=== PATIENT | female | born 1950 | race American Indian/Alaskan Native ===

== ENCOUNTER 2020-08-06 12:25 | Inpatient (IN) | payer MEDICARE ==
--- NOTE | 2020-08-06 13:22 | Emergency Department Report ---
ED Shortness of Breath HPI - General Chief Complaint: Dyspnea/Respdistress Stated Complaint: AMADA Time Seen by Provider: 08/06/20 12:59 Source: EMS Mode of arrival: Stretcher Limitations: Other - History of Present Illness Initial Comments: 70-year-old female, history of respiratory failure with tracheostomy tube, HIV, diabetes, CHF with defibrillator, anoxic brain injury, COPD, sent to ED from [facility] for labored breathing. Patient does not appear to be in any respiratory distress. Patient shakes her head yes or no to questioning. She denies any difficulty breathing, cough, chest pain. I spoke with patient's nurse at [facility], [place]. She reports that around 11 AM they noticed that patient had some labored breathing. Patient is normally on 10 L O2. With this, she states patient had O2 sats of 95%, however she was still tachypneic, breathing 25 breaths/min, so patient was placed on nonrebreather and EMS was called. She reports patient has not had a fever. Patient has not received a COVID-19 vaccine. States her rapid COVID test at the detention this morning was negative. Nurse also reports yesterday, systolic BP was in the 130s. MD Complaint: shortness of breath -: This morning Severity: Unable to Determine Consistency: constant Improves With: nothing Worsens With: nothing Known History Of: COPD, congestive heart failure, HIV Associated Symptoms: denies other symptoms Treatments Prior to Arrival: oxygen - Related Data Home Oxygen Therapy: Yes Home Oxygen Amount: other (10 L) Home Medications Medication Instructions Recorded Confirmed Last Taken Acetaminophen [Tylenol] 650 mg FEEDTUBE Q6H PRN 08/06/20 08/06/20 Unknown Albuterol Sulfate 2.5 mg IH QID 08/06/20 08/06/20 Unknown Amlodipine Besylate [Norvasc] 5 mg FEEDTUBE DAILY 08/06/20 08/06/20 Unknown Apixaban [Eliquis] 5 mg FEEDTUBE BID 08/06/20 08/06/20 Unknown Aspirin EC [Halfprin EC] 81 mg FEEDTUBE QDAY 08/06/20 08/06/20 Unknown Atovaquone [Mepron] 10 ml FEEDTUBE DAILY 08/06/20 08/06/20 Unknown Colesevelam [Welchol] 3 tab FEEDTUBE BID 08/06/20 08/06/20 Unknown Dolutegravir Sodium [Tivicay] 50 mg FEEDTUBE DAILY 08/06/20 08/06/20 Unknown Donepezil HCl [Donepezil HCl Odt] 5 mg FEEDTUBE QHS 08/06/20 08/06/20 Unknown Emtricitabine [Emtriva] 200 mg FEEDTUBE QDAY 08/06/20 08/06/20 Unknown Famotidine [Pepcid] 20 mg FEEDTUBE DAILY 08/06/20 08/06/20 Unknown Insulin Glargine,Hum.rec.anlog 10 unit SUB-Q DAILY 08/06/20 08/06/20 Unknown [Basaglar Kwikpen U-100] Lipase/Protease/Amylase [Creon Dr 1 each FEEDTUBE TID 08/06/20 08/06/20 Unknown 12,000 Units Capsule] Lispro Insulin [HumaLOG] 0.1 ml SQ DAILY 08/06/20 08/06/20 Unknown Memantine 5 mg FEEDTUBE BID 08/06/20 08/06/20 Unknown Sacubitril/Valsartan [Entresto 24 1 each FEEDTUBE BID 08/06/20 08/06/20 Unknown - 26 mg] Scopolamine [Transderm-Scop] 1.5 mg TRANSDERMA Q3D 08/06/20 08/06/20 Unknown Tuberculin Ppd [Aplisol] 0.1 ml IM DAILY 08/06/20 08/06/20 Unknown carvediloL [Coreg] 12.5 mg FEEDTUBE BID 08/06/20 08/06/20 Unknown hydrALAZINE [Apresoline TAB] 100 mg FEEDTUBE DAILY 08/06/20 08/06/20 Unknown levETIRAcetam [Spritam] 7.5 ml FEEDTUBE BID 08/06/20 08/06/20 Unknown Allergies Allergy/AdvReac Type Severity Reaction Status Date / Time No Known Allergies Allergy Unverified 08/06/20 12:41 ED Review of Systems ROS: Stated complaint: AMADA Other details as noted in HPI Comment: All other systems reviewed and negative Respiratory: denies: cough, shortness of breath Cardiovascular: denies: chest pain ED Past Medical Hx - Past Medical History Additional medical history: RESP FAILURE WITH HYPOXIA. HIV. MUSCLE WEAKNESS CHF DIABETES DYSPHAGIA CARDIOMYPATHY ANOXIC BRAIN INJURY. COPD DEFIB - Medications Home Medications: Home Medications Medication Instructions Recorded Confirmed Last Taken Type Acetaminophen [Tylenol] 650 mg FEEDTUBE Q6H PRN 08/06/20 08/06/20 Unknown History Albuterol Sulfate 2.5 mg IH QID 08/06/20 08/06/20 Unknown History Amlodipine Besylate [Norvasc] 5 mg FEEDTUBE DAILY 08/06/20 08/06/20 Unknown History Apixaban [Eliquis] 5 mg FEEDTUBE BID 08/06/20 08/06/20 Unknown History Aspirin EC [Halfprin EC] 81 mg FEEDTUBE QDAY 08/06/20 08/06/20 Unknown History Atovaquone [Mepron] 10 ml FEEDTUBE DAILY 08/06/20 08/06/20 Unknown History Colesevelam [Welchol] 3 tab FEEDTUBE BID 08/06/20 08/06/20 Unknown History Dolutegravir Sodium [Tivicay] 50 mg FEEDTUBE DAILY 08/06/20 08/06/20 Unknown History Donepezil HCl [Donepezil HCl Odt] 5 mg FEEDTUBE QHS 08/06/20 08/06/20 Unknown History Emtricitabine [Emtriva] 200 mg FEEDTUBE QDAY 08/06/20 08/06/20 Unknown History Famotidine [Pepcid] 20 mg FEEDTUBE DAILY 08/06/20 08/06/20 Unknown History Insulin Glargine,Hum.rec.anlog 10 unit SUB-Q DAILY 08/06/20 08/06/20 Unknown H istory [Basaglar Kwikpen U-100] Lipase/Protease/Amylase [Creon Dr 1 each FEEDTUBE TID 08/06/20 08/06/20 Unknown History 12,000 Units Capsule] Lispro Insulin [HumaLOG] 0.1 ml SQ DAILY 08/06/20 08/06/20 Unknown History Memantine 5 mg FEEDTUBE BID 08/06/20 08/06/20 Unknown History Sacubitril/Valsartan [Entresto 24 1 each FEEDTUBE BID 08/06/20 08/06/20 Unknown History - 26 mg] Scopolamine [Transderm-Scop] 1.5 mg TRANSDERMA Q3D 08/06/20 08/06/20 Unknown History Tuberculin Ppd [Aplisol] 0.1 ml IM DAILY 08/06/20 08/06/20 Unknown History carvediloL [Coreg] 12.5 mg FEEDTUBE BID 08/06/20 08/06/20 Unknown History hydrALAZINE [Apresoline TAB] 100 mg FEEDTUBE DAILY 08/06/20 08/06/20 Unknown History levETIRAcetam [Spritam] 7.5 ml FEEDTUBE BID 08/06/20 08/06/20 Unknown History ED Physical Exam - General Limitations: Other General appearance: alert, in no apparent distress - Head Head exam: Present: atraumatic, normocephalic - Eye Eye exam: Present: normal appearance, EOMI - ENT ENT exam: Present: mucous membranes moist - Neck Neck exam: Present: other (Tracheostomy in place) - Respiratory Respiratory exam: Present: normal lung sounds bilaterally. Absent: respiratory distress - Cardiovascular Cardiovascular Exam: Present: regular rate, normal rhythm - GI/Abdominal GI/Abdominal exam: Present: soft, other (PEG tube in place). Absent: distended, tenderness - Extremities Exam Extremities exam: Present: normal inspection - Neurological Exam Neurological exam: Present: alert, other (Follows commands, shakes head yes and no to answer questions) - Psychiatric Psychiatric exam: Present: normal affect, normal mood - Skin Skin exam: Present: warm, dry, intact, normal color ED Course Vital Signs 08/06/20 08/06/20 08/06/20 12:45 12:47 13:30 Temperature 97.8 F Pulse Rate 100 H 97 H 99 H Respiratory 21 20 17 Rate Blood Pressure 85/50 86/52 Blood Pressure 85/50 [Right] O2 Sat by Pulse 93 95 94 Oximetry 08/06/20 08/06/20 08/06/20 14:00 14:15 14:30 Temperature Pulse Rate 94 H 93 H 92 H Respiratory 19 16 17 Rate Blood Pressure 88/51 87/50 87/50 Blood Pressure [Right] O2 Sat by Pulse 99 100 100 Oximetry 08/06/20 08/06/20 08/06/20 14:45 14:47 15:16 Temperature Pulse Rate 91 H 89 90 Respiratory 15 14 16 Rate Blood Pressure 101/54 98/54 Blood Pressure 101/54 [Right] O2 Sat by Pulse 100 100 100 Oximetry 08/06/20 08/06/20 08/06/20 15:19 16:00 16:16 Temperature Pulse Rate 94 H 93 H 91 H Respiratory 14 30 H 14 Rate Blood Pressure 98/53 98/53 Blood Pressure 98/54 [Right] O2 Sat by Pulse 99 100 100 Oximetry 08/06/20 08/06/20 08/06/20 17:00 17:16 18:46 Temperature Pulse Rate 86 85 78 Respiratory 18 12 16 Rate Blood Pressure 96/54 96/54 104/56 Blood Pressure [Right] O2 Sat by Pulse 100 100 99 Oximetry ED Medical Decision Making - Lab Data Result diagrams: 08/06/20 13:33 08/06/20 16:04 - EKG Data -: EKG Interpreted by Me EKG shows normal: sinus rhythm, intervals, QRS complexes, ST-T waves Rate: normal - EKG Data When compared to previous EKG there are: no significant change - Radiology Data Radiology results: report reviewed, image reviewed - Medical Decision Making 70-year-old female presents to ED from detention for respiratory distress. Patient does not appear to be in any respiratory distress here in the ED. Trach care performed by respiratory therapist. O2 sats are normal. However, chest x- ray shows pneumonia versus pneumonitis. Levaquin given for possible pneumonia. Blood cultures drawn. Lactic acid is normal, WBCs are normal. Patient is, however, hypotensive. Patient given 1 L bolus of fluids with improvement of her blood pressure. Patient will be admitted to hospitalist, Dr. Khoury, for further management. - Differential Diagnosis Pneumonia, COPD exacerbation, CHF exacerbation Critical care attestation.: If time is entered above; I have spent that time in minutes in the direct care of this critically ill patient, excluding procedure time. ED Disposition Clinical Impression: Hypotension, Pneumonia Disposition: [id number] OP ADMIT IP TO THIS HOSP Is pt being admited?: Yes Condition: Stable Time of Disposition: 17:33
--- NOTE | 2020-08-06 13:50 | XRay Report ---
CHEST 1 VIEW 08/06/2020 1:09 PM INDICATION / CLINICAL INFORMATION: sob. COMPARISON: None available. FINDINGS: SUPPORT DEVICES: Tracheostomy tube appears in satisfactory position radiographically. Automated defib rillator device is noted. HEART / MEDIASTINUM: Atherosclerotic calcifications are noted in the aortic arch. LUNGS / PLEURA: There are patchy parenchymal opacities in the lung bases and in the midlung zones. No pneumothorax. There is a somewhat nodular density in the right midlung zone which measures approxima tely 12 mm. This is partially obscured by a wire. ADDITIONAL FINDINGS: No significant additional findings. IMPRESSION: 1. There are parenchymal opacities in the lung bases and to a lesser extent in the midlung zones. Thi s may represent pneumonia or pneumonitis. Short-term follow-up is recommended to evaluate for clearin g. 2. There is a nodular density in the right midlung zone. In the absence of prior imaging, CT scanning of the chest is recommended to further evaluate. Signer Name: Amando Hanks MD Signed: 08/06/2020 1:46 PM Workstation Name: [id number]
[2020-08-06] MEDS ORDERED: SODIUM CHLORIDE 0.9% 500 ML 500 ML IV ONE ×2 (13:55→16:49)
[2020-08-06 14:20] LABS: Hematocrit 30.4 % (30.3-42.9); Hemoglobin 10.5 gm/dl (10.1-14.3); Mean Corpuscular HGB Conc 34 % (30-34); Mean Corpuscular Volume 111 fl (79-97); Platelet Count 208 K/mm3 (140-440); Red Blood Count 2.73 M/mm3 (3.65-5.03); Red Cell Distribution Width 15.4 % (13.2-15.2)
[2020-08-06 15:55] LABS: Blood Urea Nitrogen 33 mg/dL (7-17); Calcium 9.7 mg/dL (8.4-10.2); Hemolysis Index 34
[2020-08-06 15:57] LABS: BUN/Creatinine Ratio 55
--- NOTE | 2020-08-06 17:18 | History and Physical Report ---
History of Present Illness Chief complaint: She is having a hard time breathing History of present illness: 70 YO Female Nursing Home Facility Resident with HTN, DM, CHF, Anoxic Brain Injury, Seizure Disorder, COPD, Chronic Respiratory Failure S/P Trach/PEG Placement on 10L supplemental oxygen via Trach collar, HIV, Vascular Dementia, Cerebral Atherosclerosis, Currently on therapeutic anticoagulation presents to ED for evaluation. Patient has diminished cognition and is unable to provide detailed history. Patient history taken from EMS staff, ED staff, as well as intermediate facility staff who was available by telephone for interview. As per staff, the patient was found to have shortness of breath with a respiratory rate in the 30s while on 10 L supplemental oxygen. EMS notified and upon arrival the patient was found to be in respiratory distress and placed on submental oxygen via nonrebreather mask and transported to [facility] for further care and evaluation of the aforementioned symptoms. The patient was seen and evaluated in the emergency department. All lab and imaging studies reviewed. Patient found to be using accessory muscles to breathe. Patient underwent chest x-ray and was found to have evidence of pneumonia. Patient was also hypotensive in the emergency department with a blood pressure of 85/50. Patient also found to have severe malnutrition, hyperkalemia, hyponatremia, as well as HIV syndrome. Patient admitted to medical floor and initiated on pneumonia protocol. No further history is obtainable. No prior admission for review. All medication listed at time of admission has been reconciled. Advanced care planning conducted in ED. Past History Past Medical History: diabetes, heart failure, HIV/AIDS, hypertension, seizures, other (See HPI) Past Surgical History: Other (Tracheostomy and PEG tube placement) Social history: . denies: smoking, alcohol abuse, prescription drug abuse Family history: hypertension Medications and Allergies Allergies Allergy/AdvReac Type Severity Reaction Status Date / Time No Known Allergies Allergy Unverified 08/06/20 12:41 Home Medications Medication Instructions Recorded Confirmed Last Taken Type Acetaminophen [Tylenol] 650 mg FEEDTUBE Q6H PRN 08/06/20 08/06/20 Unknown History Albuterol Sulfate 2.5 mg IH QID 08/06/20 08/06/20 Unknown History Amlodipine Besylate [Norvasc] 5 mg FEEDTUBE DAILY 08/06/20 08/06/20 Unknown History Apixaban [Eliquis] 5 mg FEEDTUBE BID 08/06/20 08/06/20 Unknown History Aspirin EC [Halfprin EC] 81 mg FEEDTUBE QDAY 08/06/20 08/06/20 Unknown History Atovaquone [Mepron] 10 ml FEEDTUBE DAILY 08/06/20 08/06/20 Unknown History Colesevelam [Welchol] 3 tab FEEDTUBE BID 08/06/20 08/06/20 Unknown History Dolutegravir Sodium [Tivicay] 50 mg FEEDTUBE DAILY 08/06/20 08/06/20 Unknown History Donepezil HCl [Donepezil HCl Odt] 5 mg FEEDTUBE QHS 08/06/20 08/06/20 Unknown History Emtricitabine [Emtriva] 200 mg FEEDTUBE QDAY 08/06/20 08/06/20 Unknown History Famotidine [Pepcid] 20 mg FEEDTUBE DAILY 08/06/20 08/06/20 Unknown History Insulin Glargine,Hum.rec.anlog 10 unit SUB-Q DAILY 08/06/20 08/06/20 Unknown History [Basaglar Kwikpen U-100] Lipase/Protease/Amylase [Creon Dr 1 each FEEDTUBE TID 08/06/20 08/06/20 Unknown History 12,000 Units Capsule] Lispro Insulin [HumaLOG] 0.1 ml SQ DAILY 08/06/20 08/06/20 Unknown History Memantine 5 mg FEEDTUBE BID 08/06/20 08/06/20 Unknown History Sacubitril/Valsartan [Entresto 24 1 each FEEDTUBE BID 08/06/20 08/06/20 Unknown History - 26 mg] Scopolamine [Transderm-Scop] 1.5 mg TRANSDERMA Q3D 08/06/20 08/06/20 Unknown History Tuberculin Ppd [Aplisol] 0.1 ml IM DAILY 08/06/20 08/06/20 Unknown History carvediloL [Coreg] 12.5 mg FEEDTUBE BID 08/06/20 08/06/20 Unknown History hydrALAZINE [Apresoline TAB] 100 mg FEEDTUBE DAILY 08/06/20 08/06/20 Unknown History levETIRAcetam [Spritam] 7.5 ml FEEDTUBE BID 05/13/21 05/13/21 Unknown History Active Meds: Active Medications Sodium Chloride (Nacl 0.9% 500 Ml) 500 mls @ 999 mls/hr IV ONCE ONE Stop: 08/06/20 17:19 Levofloxacin/Dextrose (Levaquin 750mg/150ml) 750 mg in 150 mls @ 100 mls/hr IV ONCE ONE; Protocol Stop: 08/06/20 18:24 Review of Systems ROS unobtainable: due to mental status Exam - Constitutional Vitals: Temp Pulse Resp BP Pulse Ox 97.8 F 86 18 96/54 100 08/06/20 12:47 08/06/20 17:00 08/06/20 17:00 08/06/20 17:00 08/06/20 17:00 General appearance: Present: mild distress - EENT Eyes: Present: PERRL ENT: hearing decreased - Neck Neck: Present: supple, normal ROM - Respiratory Respiratory effort: labored Respiratory: bilateral: diminished, rhonchi - Cardiovascular Heart Sounds: Present: S1 & S2. Absent: rub, click - Extremities Extremities: pulses symmetrical, No edema Peripheral Pulses: within normal limits - Abdominal General gastrointestinal: Present: soft, non-tender, non-distended, normal bowel sounds Female genitourinary: Present: normal - Integumentary Integumentary: Present: clear, dry, decreased turgor - Musculoskeletal Musculoskeletal: generalized weakness - Psychiatric Psychiatric: no appropriate mood/affect, no intact judgment & insight, no memory intact - Neurologic Neurologic: CNII-XII intact, no moves all extremities, no gait normal HEART Score - HEART Score Troponin: Troponin T 0.015 ng/mL (0.00-0.029) 08/06/20 13:47 Results - Labs CBC & Chem 7: 08/06/20 13:33 08/06/20 16:04 Labs: Abnormal lab results 08/06/20 08/06/20 08/06/20 Range/Units 13:33 13:33 16:04 RBC 2.73 L (3.65-5.03) M/mm3 MCV 111 H (79-97) fl MCH 38 H (28-32) pg RDW 15.4 H (13.2-15.2) % Sodium 136 L (137-145) mmol/L Potassium 5.7 H 5.1 H (3.6-5.0) mmol/L Carbon Dioxide 21 L (22-30) mmol/L BUN 33 H (7-17) mg/dL Glucose 147 H (65-100) mg/dL Assessment and Plan - Patient Problems (1) Acute and chronic respiratory failure Current Visit: Yes Status: Acute Qualifiers: Respiratory failure complication: hypoxia Qualified Code(s): J96.21 - Acute and chronic respiratory failure with hypoxia Plan to address problem: Supplemental oxygen, pulse oximetry, pulmonary toilet, tracheostomy care. Chest x-ray. (2) Severe malnutrition Current Visit: Yes Status: Acute Plan to address problem: Increase protein intake, dietary supplementation. (3) Hypertension Current Visit: Yes Status: Acute Qualifiers: Hypertension type: essential hypertension Qualified Code(s): I10 - Essential (primary) hypertension Plan to address problem: Monitor blood pressure every shift. Patient is normally hypertensive. We will hold antihypertensive therapy at this time. Patient has hypotension. (4) Diabetes Current Visit: Yes Status: Acute Plan to address problem: Sliding-scale insulin, consistent carbohydrate diet, insulin protocol, hypoglycemia protocol. (5) HIV (human immunodeficiency virus infection) Current Visit: Yes Status: Acute Plan to address problem: Continue prehospital antiretroviral therapy. Outpatient infectious disease follow-up. (6) Hypotension Current Visit: Yes Status: Acute Plan to address problem: Monitor blood pressure every shift, continue medical management, IV fluid resuscitation challenge. Hold antihypertensive therapy at this time. (7) Pneumonia Current Visit: Yes Status: Acute Plan to address problem: Pneumonia protocol: Chest x-ray, CBC, CMP, IV antibiotic therapy, supplemental oxygen, pulse oximetry, blood culture. (8) DVT prophylaxis Current Visit: Yes Status: Acute Plan to address problem: SCD to bilateral lower extremities while in bed, continue therapeutic anticoagulation. (9) Advance care planning Current Visit: Yes Status: Acute Plan to address problem: Disease education conducted, care plan discussed, diagnosis discussed, patient is full code, prognosis discussed, +30 minutes.
[2020-08-06] MEDS ORDERED: ACETAMINOPHEN 325 MG TAB PO PRN (17:44)
[2020-08-06] MEDS ORDERED: ONDANSETRON 4 MG/2 ML INJ IV PRN (17:44)
[2020-08-06] MEDS ORDERED: ALBUTEROL 2.5 MG/3 ML NEBU IH PRN (17:57)
[2020-08-06] MEDS ORDERED: NON-FORMULARY EACH (Acetaminophen [Tylenol] 325 MG Capsule) FEEDTUBE PRN (17:58)
[2020-08-06 18:14] LABS: Bacteria,Urine 2+ /HPF (Negative); Bilirubin,Urine NEG (Negative); Blood,Urine NEG (Negative); Color,Urine Yellow (Yellow); Protein,Urine <15 mg/dL mg/dL (Negative); Urobilinogen,Urine < 2.0 mg/dL (<2.0)
[2020-08-06] MEDS ORDERED: ACETAMINOPHEN 325 MG/10.15 ML ORAL LIQD UNIT DOSE PO PRN (18:41)
[2020-08-06] MEDS ORDERED: DONEPEZIL HCL 5 MG FEEDTUBE SCH (22:00)
[2020-08-06] MEDS ORDERED: LEVETIRACETAM 1000 MG FEEDTUBE SCH (22:00)
[2020-08-06] MEDS ORDERED: NON-FORMULARY EACH (Apixaban 5 MG Tablet) FEEDTUBE SCH (22:00)
[2020-08-06] MEDS: levETIRAcetam 500 MG/5 ML ORAL LIQD PO SCH (23:03)
[2020-08-06] MEDS: APIXABAN 5 MG TAB FEEDTUBE SCH (23:03)
[2020-08-06] MEDS: LIPASE 12,000/PROTEASE 38,000/AMYLASE 60,000 (UNITS) DR CAP FEEDTUBE SCH (23:09)
[2020-08-06] MEDS: DONEPEZIL 5 MG TAB FEEDTUBE SCH (23:24)
[2020-08-06] MEDS: carvediloL 12.5 MG TAB FEEDTUBE SCH (23:25)
[2020-08-06] MEDS: INSULIN GLARGINE 100 UNITS/ML SUB-Q SCH (23:25)
[2020-08-07] MEDS: COLESEVELAM 625 MG TAB PO SCH ×3 (00:25→22:18)
[2020-08-07 05:32] LABS: Eosinophils # (Auto) 0.2 K/mm3 (0.0-0.4); Eosinophils % (Auto) 4.9 % (0.0-4.3); Hematocrit 25.7 % (30.3-42.9); Hemoglobin 8.7 gm/dl (10.1-14.3); Lymphocytes # (Auto) 1.4 K/mm3 (1.2-5.4); Lymphocytes % (Auto) 40.3 % (13.4-35.0); Mean Corpuscular HGB Conc 34 % (30-34); Mean Corpuscular Volume 111 fl (79-97); Monocytes # (Auto) 0.3 K/mm3 (0.0-0.8); Monocytes % (Auto) 7.5 % (0.0-7.3); Platelet Count 223 K/mm3 (140-440); Red Blood Count 2.31 M/mm3 (3.65-5.03); Red Cell Distribution Width 15.4 % (13.2-15.2)
[2020-08-07 05:57] LABS: Alanine Aminotransferase 7 units/L (7-56); Albumin 3.3 g/dL (3.9-5); Blood Urea Nitrogen 22 mg/dL (7-17); Calcium 9.3 mg/dL (8.4-10.2); Hemolysis Index 53
[2020-08-07 05:58] LABS: BUN/Creatinine Ratio 73
--- NOTE | 2020-08-07 08:47 | Cat Scan Report ---
CT CHEST WITHOUT IV CONTRAST INDICATION: Evaluate nodular density in the right lung. COMPARISON: No prior CTs. Chest radiograph one day prior. TECHNIQUE: All CT scans at this location are performed using CT dose reduction for ALARA by means of automated e xposure control. Axial CT images were obtained through the chest. FINDINGS: Upper Abdomen: No acute abnormality. Skeletal System: No acute abnormality. Chest: Great Vessels: There is moderate atherosclerotic calcification within the descending thoracic aorta. Heart: There is mild cardiomegaly. Advanced coronary artery calcification is present. Mediastinum & Maribel: No significant abnormality. Lungs: Advanced emphysematous changes are noted with biapical and subpleural blebs. Within the right lung base adjacent to the medial right hemidiaphragm, there is a 1.2 cm noncalcified nodule (axial se amber 2 image 83). Within the left lower lobe posteriorly there are several clustered nodular densitie s; these measure approximately 6-8 mm (as seen on axial image 60). At the lateral left lung apex, the re is a 3-4 mm noncalcified nodule (image 12). Bilateral densely calcified nodules may be granulomato us. There are presumed atelectatic changes in the lung bases. Pleura: No significant pleural effusion. No pneumothorax. Additional Findings: Tracheostomy is in satisfactory position. IMPRESSION: 1. Multiple incidental pulmonary nodule(s) bilaterally, the largest at the left lung base 12 mm with solid characteristics. - Recommendation according to Fleischner Society 2017 Guidelines: Low Risk or High Risk Patient: Cons ider CT at 3 months, PET/CT, or tissue sampling. 2. Additional incidental findings as above. Signer Name: Stanislaw Pedroza MD Signed: 08/07/2020 8:43 AM Workstation Name: [id number]
--- NOTE | 2020-08-07 09:44 | Progress Note ---
Assessment and Plan Assessment and plan: #Acute on chronic respiratory failure Started on IV antibiotics COVID-19 test pending #Pneumonia Antibiotics Rule out COVID-19 infection #Severe malnutrition Dietary supplementation #Hypertension Continue allergy medications #Diabetes mellitus Lantus and lispro #HIV Asymptomatic Continue home medications #DVT prophylaxis-Heparin/Lovenox #full code #Disposition-Back to facility when stable. manager hotel on board History Interval history: 70 YO Female Longterm Facility Resident with HTN, DM, CHF, Anoxic Brain Injury, Seizure Disorder, COPD, Chronic Respiratory Failure S/P Trach/PEG Placement on 10L supplemental oxygen via Trach collar, HIV, Vascular Dementia, Cerebral Atherosclerosis, Currently on therapeutic anticoagulation presents to ED for evaluation. Patient has diminished cognition and is unable to provide detailed history. Patient history taken from EMS staff, ED staff, as well as shelter facility staff who was available by telephone for interview. As per staff, the patient was found to have shortness of breath with a respiratory rate in the 30s while on 10 L supplemental oxygen. EMS notified and upon arrival the patient was found to be in respiratory distress and placed on submental oxygen via nonrebreather mask and transported to [facility] for further care and evaluation of the aforementioned symptoms. The patient was seen and evaluated in the emergency department. All lab and imaging studies reviewed. Patient found to be using accessory muscles to breathe. Patient underwent chest x-ray and was found to have evidence of pneumonia. Patient was also hypotensive in the emergency department with a blood pressure of 85/50. Patient also found to have severe malnutrition, hyperkalemia, hyponatremia, as well as HIV syndrome. Patient admitted to medical floor and initiated on pneumonia protocol. No further history is obtainable. Hospital course 08/07. Patient started on broad-spectrum antibiotics. COVID-19 test has been ordered. Procalcitonin pending. Hospitalist Physical - Physical exam Narrative exam: VITAL SIGNS: Reviewed. GENERAL: Awake HEAD: No signs of head trauma. EYES: Pupils are equal. Extraocular motions intact. MOUTH: Oropharynx is normal. NECK: Trach collar in place CHEST: Chest with diminished breath sounds bilaterally. No wheezes, rales, or rhonchi. CARDIAC: normal S1 and S2, without murmurs, gallops, or rubs. ABDOMEN: Soft, non tender and non distended. No rebound or guarding, and no masses palpated. Bowel Sounds normal. MUSCULOSKELETAL: No edema NEUROLOGIC EXAM: Alert and oriented x3 SKIN: No obvious lesions - Constitutional Vitals: Temp Pulse Resp BP Pulse Ox 97.9 F 85 16 101/58 98 08/07/20 05:59 08/07/20 05:59 08/07/20 05:59 08/07/20 05:59 08/07/20 08:00 HEART Score - HEART Score Troponin: Troponin T 0.015 ng/mL (0.00-0.029) 08/06/20 13:47 Results - Labs CBC & Chem 7: 08/07/20 04:47 08/07/20 04:47 Labs: Laboratory Last Values WBC 3.4 K/mm3 (4.5-11.0) L 08/07/20 04:47 RBC 2.31 M/mm3 (3.65-5.03) L 08/07/20 04:47 Hgb 8.7 gm/dl (10.1-14.3) L 08/07/20 04:47 Hct 25.7 % (30.3-42.9) L 08/07/20 04:47 MCV 111 fl (79-97) H 08/07/20 04:47 MCH 38 pg (28-32) H 08/07/20 04:47 MCHC 34 % (30-34) 08/07/20 04:47 RDW 15.4 % (13.2-15.2) H 08/07/20 04:47 Plt Count 223 K/mm3 (140-440) 08/07/20 04:47 Lymph % (Auto) 40.3 % (13.4-35.0) H 08/07/20 04:47 [place] % (Auto) 7.5 % (0.0-7.3) H 08/07/20 04:47 Eos % (Auto) 4.9 % (0.0-4.3) H 08/07/20 04:47 Baso % (Auto) 1.0 % (0.0-1.8) 08/07/20 04:47 Lymph # (Auto) 1.4 K/mm3 (1.2-5.4) 08/07/20 04:47 [place] # (Auto) 0.3 K/mm3 (0.0-0.8) 08/07/20 04:47 Eos # (Auto) 0.2 K/mm3 (0.0-0.4) 08/07/20 04:47 Baso # (Auto) 0.0 K/mm3 (0.0-0.1) 08/07/20 04:47 Seg Neutrophils % 46.3 % (40.0-70.0) 08/07/20 04:47 Seg Neutrophils # 1.6 K/mm3 (1.8-7.7) L 08/07/20 04:47 Sodium 136 mmol/L (137-145) L 08/07/20 04:47 Potassium 4.7 mmol/L (3.6-5.0) 08/07/20 04:47 Chloride 102.8 mmol/L (98-107) 08/07/20 04:47 Carbon Dioxide 25 mmol/L (22-30) 08/07/20 04:47 Anion Gap 13 mmol/L 08/07/20 04:47 BUN 22 mg/dL (7-17) H 08/07/20 04:47 Creatinine 0.3 mg/dL (0.6-1.2) L 08/07/20 04:47 Estimated GFR > 60 ml/min 08/07/20 04:47 BUN/Creatinine Ratio 73 % 08/07/20 04:47 Glucose 152 mg/dL (65-100) H 08/07/20 04:47 POC Glucose 73 mg/dL (70-105) 08/06/20 23:20 Lactic Acid 1.40 mmol/L (0.7-2.0) 08/06/20 15:31 Calcium 9.3 mg/dL (8.4-10.2) 08/07/20 04:47 Total Bilirubin 0.60 mg/dL (0.1-1.2) 08/07/20 04:47 AST 15 units/L (5-40) 08/07/20 04:47 ALT 7 units/L (7-56) 08/07/20 04:47 Alkaline Phosphatase 137 units/L (35-129) H 08/07/20 04:47 Troponin T 0.015 ng/mL (0.00-0.029) 08/06/20 13:47 NT-Pro-B Natriuret Pep 344.0 pg/mL (0-900) 08/06/20 13:33 Total Protein 6.4 g/dL (6.3-8.2) 08/07/20 04:47 Albumin 3.3 g/dL (3.9-5) L 08/07/20 04:47 Albumin/Globulin Ratio 1.1 % 08/07/20 04:47 Urine Color Yellow (Yellow) 08/06/20 17:51 Urine Turbidity Slightly-cloudy (Clear) 08/06/20 17:51 Urine pH 5.0 (5.0-7.0) 08/06/20 17:51 Ur Specific [place] 1.015 (1.003-1.030) 08/06/20 17:51 Urine Protein <15 mg/dl mg/dL (Negative) 08/06/20 17:51 Urine Glucose (UA) Neg mg/dL (Negative) 08/06/20 17:51 Urine Ketones Neg mg/dL (Negative) 08/06/20 17:51 Urine Blood Neg (Negative) 08/06/20 17:51 Urine Nitrite Neg (Negative) 08/06/20 17:51 Urine Bilirubin Neg (Negative) 08/06/20 17:51 Urine Urobilinogen < 2.0 mg/dL (<2.0) 08/06/20 17:51 Ur Leukocyte Esterase Neg (Negative) 08/06/20 17:51 Urine WBC (Auto) 4.0 /HPF (0.0-6.0) 08/06/20 17:51 Urine RBC (Auto) 1.0 /HPF (0.0-6.0) 08/06/20 17:51 U Epithel Cells (Auto) < 1.0 /HPF (0-13.0) 08/06/20 17:51 Urine Bacteria (Auto) 2+ /HPF (Negative) 08/06/20 17:51 Microbiology: Microbiology 08/06/20 17:39 Peripheral/Venous Blood Culture - Preliminary Culture in Progress 08/06/20 17:39 Peripheral/Venous Blood Culture - Preliminary Culture in Progress Adams/IV: Voiding Method Incontinent Active Medications - Current Medications Current Medications: Generic Name Dose Route Start Last Admin Trade Name Freq PRN Reason Stop Dose Admin Acetaminophen 650 mg 08/06/20 18:41 Acetaminophen 325 Mg/10.15 Ml Oral Liqd Unit Dose PO Q4H PRN Pain Mild (1-3),FEVER>100.5HA Albuterol 2.5 mg 08/06/20 17:57 Albuterol 2.5 Mg/3 Ml Nebu IH Q4HRT PRN Shortness Of Breath Amlodipine Besylate 5 mg 08/07/20 10:00 Amlodipine 5 Mg Tab FEEDTUBE QDAY TOMMY Lipase/Protease/Amylase 1 each 08/06/20 20:00 08/06/20 23:09 Lipase 12,000/Protease 38,000/Amylase 60,000 (Units) Dr Kimball FEEDTUBE 1 each TID TOMMY Administration Apixaban 5 mg 08/06/20 22:00 08/06/20 23:03 Apixaban 5 Mg Tab FEEDTUBE 5 mg Q12HR TOMMY Administration Aspirin 81 mg 08/07/20 10:00 Aspirin 81 Mg Tab Chew FEEDTUBE QDAY TOMMY Atovaquone 1,500 mg 08/07/20 10:00 Atovaquone 750 Mg/5 Ml Oral Susp PO DAILY TOMMY Carvedilol 12.5 mg 08/06/20 22:00 08/06/20 23:25 Carvedilol 12.5 Mg Tab FEEDTUBE Not Given BID TOMMY Colesevelam HCl 1,875 mg 08/06/20 22:00 08/07/20 00:25 Colesevelam 625 Mg Tab PO 1,875 mg BID TOMMY Administration Donepezil HCl 5 mg 08/06/20 22:00 08/06/20 23:24 Donepezil 5 Mg Tab FEEDTUBE 5 mg QHS TOMMY Administration Emtricitabine 200 mg 08/07/20 10:00 Emtricitabine 200 Mg Cap PO QDAY [facility] Famotidine 20 mg 08/07/20 10:00 Famotidine 20 Mg Tab FEEDTUBE DAILY [facility] Hydralazine HCl 100 mg 08/07/20 10:00 Hydralazine 100 Mg Tab FEEDTUBE DAILY [facility] Levofloxacin/Dextrose 750 mg in 150 mls @ 100 mls/hr 08/07/20 10:00 Levaquin 750mg/150ml IV Q24HR [facility] Protocol Insulin Glargine 10 units 08/06/20 22:00 08/06/20 23:25 Insulin Glargine 100 Units/Ml SUB-Q Not Given QHS [facility] Insulin Human Lispro 10 unit 08/07/20 10:00 Insulin Lispro 100 Unit/Ml SUB-Q DAILY TOMMY Levetiracetam 750 mg 08/06/20 22:00 08/06/20 23:03 Levetiracetam 500 Mg/5 Ml Oral Liqd PO 750 mg BID TOMMY Administration Ondansetron HCl 4 mg 08/06/20 17:44 Ondansetron 4 Mg/2 Ml Inj IV Q8H PRN Nausea And Vomiting Sodium Chloride 10 ml 08/06/20 22:00 08/06/20 23:10 Sodium Chloride 0.9% 10 Ml Flush Syringe IV 10 ml BID TOMMY Administration Sodium Chloride 10 ml 08/06/20 17:44 Sodium Chloride 0.9% 10 Ml Flush Syringe IV PRN PRN LINE FLUSH
[2020-08-07] MEDS ORDERED: DEXTROSE 50% IN WATER (25GM) 50 ML SYRINGE IV PRN (09:48)
[2020-08-07] MEDS ORDERED: NON-FORMULARY EACH (Amlodipine Besylate [Norvasc] 2.5 MG Tablet) FEEDTUBE SCH (10:00)
[2020-08-07] MEDS ORDERED: DOLUTEGRAVIR SODIUM FEEDTUBE SCH (10:00)
[2020-08-07] MEDS ORDERED: ASPIRIN EC 81 MG TAB PO SCH (10:00)
[2020-08-07] MEDS ORDERED: INSULIN LISPRO 100 UNIT/ML SUB-Q SCH (10:00)
[2020-08-07] MEDS ORDERED: NON-FORMULARY EACH (Insulin Glargine,Hum.Rec.Anlog [Basaglar Kwikpen U-100] 100 UNIT/ML In SUB-Q SCH (10:00)
[2020-08-07] MEDS: levETIRAcetam 500 MG/5 ML ORAL LIQD PO SCH ×2 (11:08→22:16)
[2020-08-07] MEDS: FAMOTIDINE 20 MG TAB FEEDTUBE SCH (11:09)
[2020-08-07] MEDS: amLODIPine 5 MG TAB FEEDTUBE SCH ×2 (11:10→11:34)
[2020-08-07] MEDS: ASPIRIN 81 MG TAB CHEW FEEDTUBE SCH (11:10)
[2020-08-07] MEDS: carvediloL 12.5 MG TAB FEEDTUBE SCH ×3 (11:10→22:15)
[2020-08-07] MEDS: LIPASE 12,000/PROTEASE 38,000/AMYLASE 60,000 (UNITS) DR CAP FEEDTUBE SCH ×3 (11:10→20:46)
[2020-08-07] MEDS: hydrALAZINE 100 MG TAB FEEDTUBE SCH ×2 (11:10→11:34)
[2020-08-07] MEDS: APIXABAN 5 MG TAB FEEDTUBE SCH ×2 (11:10→22:16)
[2020-08-07] MEDS: EMTRICITABINE 200 MG CAP PO SCH (16:10)
[2020-08-07] MEDS: ATOVAQUONE 750 MG/5 ML ORAL SUSP PO SCH (16:11)
[2020-08-07] MEDS: DOLUTEGRAVIR 50 MG TAB PO SCH (16:11)
[2020-08-07] MEDS: INSULIN LISPRO 100 UNIT/ML SUB-Q SCH ×2 (16:19→18:45)
[2020-08-07] MEDS: DONEPEZIL 5 MG TAB FEEDTUBE SCH (22:19)
[2020-08-08] MEDS: INSULIN LISPRO 100 UNIT/ML SUB-Q SCH ×3 (00:51→12:56)
[2020-08-08] MEDS: INSULIN GLARGINE 100 UNITS/ML SUB-Q SCH (00:52)
[2020-08-08 06:20] LABS: Basophils % (Auto) 1.1 % (0.0-1.8); Eosinophils # (Auto) 0.1 K/mm3 (0.0-0.4); Eosinophils % (Auto) 2.6 % (0.0-4.3); Hematocrit 23.1 % (30.3-42.9); Hemoglobin 7.9 gm/dl (10.1-14.3); Lymphocytes # (Auto) 1.4 K/mm3 (1.2-5.4); Lymphocytes % (Auto) 37.8 % (13.4-35.0); Mean Corpuscular HGB Conc 34 % (30-34); Mean Corpuscular Volume 110 fl (79-97); Monocytes # (Auto) 0.3 K/mm3 (0.0-0.8); Platelet Count 211 K/mm3 (140-440); Red Cell Distribution Width 14.9 % (13.2-15.2)
[2020-08-08 06:43] LABS: Alanine Aminotransferase 8 units/L (7-56); Albumin 3.3 g/dL (3.9-5); Blood Urea Nitrogen 17 mg/dL (7-17); Calcium 9.3 mg/dL (8.4-10.2); Hemolysis Index 10
[2020-08-08 06:54] LABS: BUN/Creatinine Ratio 43
--- NOTE | 2020-08-08 10:29 | Discharge Summary ---
Providers - Providers Date of Admission: 08/06/20 17:44 Date of discharge: 08/08/20 Attending physician: GYPSY HERRMANN 08/07/20 11:23 Occupational Therapy Evaluate and Treat [CONS] Routine Comment: Debility Reason For Exam: Eval & Treat Physical Therapy Evaluation and Treat [CONS] Routine Comment: Debility Reason For Exam: Eval & Treat Hospitalization Condition: Stable Hospital course: 70 YO Female Alf Facility Resident with HTN, DM, CHF, Anoxic Brain Injury, Seizure Disorder, COPD, Chronic Respiratory Failure S/P Trach/PEG Placement on 10L supplemental oxygen via Trach collar, HIV, Vascular Dementia, Cerebral Atherosclerosis, Currently on therapeutic anticoagulation presents to ED for evaluation. Patient has diminished cognition and is unable to provide detailed history. Patient history taken from EMS staff, ED staff, as well as nursing home facility staff who was available by telephone for interview. As per staff, the patient was found to have shortness of breath with a respiratory rate in the 30s while on 10 L supplemental oxygen. EMS notified and upon arrival the patient was found to be in respiratory distress and placed on submental oxygen via nonrebreather mask and transported to [facility] for further care and evaluation of the aforementioned symptoms. The patient was seen and evaluated in the emergency department. All lab and imaging studies reviewed. Patient found to be using accessory muscles to breathe. Patient underwent chest x-ray and was found to have evidence of pneumonia. Patient was also hypoten sive in the emergency department with a blood pressure of 85/50. Patient also found to have severe malnutrition, hyperkalemia, hyponatremia, as well as HIV syndrome. Patient admitted to medical floor and initiated on pneumonia protocol. No further history is obtainable. Hospital course 08/07. Patient started on broad-spectrum antibiotics. COVID-19 test has been ordered. Procalcitonin pending. 08/08. Patient is comfortable. On 28% of oxygen. Breathing not labored. Procalcitonin less than 0.05. She will complete Levaquin treatment (total 7 days). Patient stable for discharge back to facility. Disposition: [id number] SNF [facility] C[facility] Final Discharge Diagnosis (Prints w/discharge instructions): Acute on chronic hypoxic respiratory failure Time spent for discharge: 40 minutes - Discharge Diagnoses (1) Acute and chronic respiratory failure Status: Acute Qualifiers: Respiratory failure complication: hypoxia Qualified Code(s): J96.21 - Acute and chronic respiratory failure with hypoxia (2) Diabetes Status: Acute (3) HIV (human immunodeficiency virus infection) Status: Acute (4) Hypertension Status: Acute Qualifiers: Hypertension type: essential hypertension Qualified Code(s): I10 - Essential (primary) hypertension (5) Pneumonia Status: Acute Core Measure Documentation - Palliative Care Palliative Care/ Comfort Measures: Not Applicable - Core Measures Any of the following diagnoses?: none Exam - Physical Exam Narrative exam: VITAL SIGNS: Reviewed. GENERAL: Awake HEAD: No signs of head trauma. EYES: Pupils are equal. Extraocular motions intact. MOUTH: Oropharynx is normal. NECK: Trach collar in place CHEST: Chest with diminished breath sounds bilaterally. No wheezes, rales, or rhonchi. CARDIAC: normal S1 and S2, without murmurs, gallops, or rubs. ABDOMEN: Soft, non tender and non distended. No rebound or guarding, and no masses palpated. Bowel Sounds normal. MUSCULOSKELETAL: No edema NEUROLOGIC EXAM: Alert and oriented x3 SKIN: No obvious lesions - Constitutional Vitals: Temp Pulse Resp BP Pulse Ox 98.4 F 82 16 117/66 100 08/08/20 05:25 08/08/20 05:25 08/08/20 05:25 08/08/20 05:25 08/08/20 08:32 Plan Additional Instructions: Levaquin x5 days. Follow-up with PCP in a week Follow up with: NIKHIL WOLFE [Other] - 3-5 Days Prescriptions: levoFLOXacin [Levaquin] 750 mg PO QDAY #5 tablet
[2020-08-08] MEDS: hydrALAZINE 100 MG TAB FEEDTUBE SCH (10:58)
[2020-08-08] MEDS: carvediloL 12.5 MG TAB FEEDTUBE SCH (10:58)
[2020-08-08] MEDS: amLODIPine 5 MG TAB FEEDTUBE SCH (10:58)
[2020-08-08 11:00] VITALS: BP 111/66
[2020-08-08] MEDS: ATOVAQUONE 750 MG/5 ML ORAL SUSP PO SCH (11:00)
[2020-08-08] MEDS: APIXABAN 5 MG TAB FEEDTUBE SCH (11:01)
[2020-08-08] MEDS: ASPIRIN 81 MG TAB CHEW FEEDTUBE SCH (11:01)
[2020-08-08] MEDS: FAMOTIDINE 20 MG TAB FEEDTUBE SCH (11:01)
[2020-08-08] MEDS: DOLUTEGRAVIR 50 MG TAB PO SCH (11:02)
[2020-08-08] MEDS: COLESEVELAM 625 MG TAB PO SCH (11:02)
[2020-08-08] MEDS: EMTRICITABINE 200 MG CAP PO SCH (11:02)
[2020-08-08] MEDS: levETIRAcetam 500 MG/5 ML ORAL LIQD PO SCH (11:04)
[2020-08-08] MEDS: LIPASE 12,000/PROTEASE 38,000/AMYLASE 60,000 (UNITS) DR CAP FEEDTUBE SCH (12:00)
[2020-08-08] MEDS ORDERED: SIMPLE SYRUP 15 ML FEEDTUBE PRN ×2 (12:56)
[2020-08-08] MEDS ORDERED: SODIUM BICARBONATE 325 MG TAB FEEDTUBE PRN (12:56)
[2020-08-08] MEDS ORDERED: LIPASE 10,500/PROTEASE 25,000/AMYLASE 43,750 (UNITS) DR CAP FEEDTUBE PRN (12:56)
--- NOTE | 2020-08-11 17:23 | Electrocardiograph Report ---
[facility] Test Date: 2020-08-06 Test Time: 17:01:03 Pat Name: JOE MARTINEZ Department: Room: A385 1 Gender: F Computer Numerical Control Programmer: ANMOL : 1950 Requested By: BLUE VASQUEZ Order Number: [id number] Reading MD: Omega Khoury Measurements Intervals [place] Rate: 85 P: 75 AK: 141 QRS: -46 QRSD: 122 T: 87 QT: 397 QTc: 473 Interpretive Statements Sinus rhythm Probable left atrial enlargement Left anterior fascicular block No previous ECG available for comparison Electronically Signed On 08-11-2020 17:23:21 EDT by Omega Khoury
== END 2020-08-08 15:42 | DRG 189 ==
LOC: ED 12:25 → 3A 17:44
PROVIDERS: ADMIT Internal Medicine; ATTEND Internal Medicine
DX: J96.21 Acute and chronic respiratory failure with hypoxia (principal); J18.9 Pneumonia, unspecified organism; E43 Unspecified severe protein-calorie malnutrition; J44.0 Chronic obstructive pulmonary disease with (acute) lower respiratory infection; Z68.1 Body mass index [BMI] 19.9 or less, adult; E87.1 Hypo-osmolality and hyponatremia; I95.9 Hypotension, unspecified; Z20.822 Contact with and (suspected) exposure to COVID-19; I50.9 Heart failure, unspecified; I11.0 Hypertensive heart disease with heart failure; E11.9 Type 2 diabetes mellitus without complications; E87.5 Hyperkalemia; G40.909 Epilepsy, unspecified, not intractable, without status epilepticus; Z93.1 Gastrostomy status; Z79.01 Long term (current) use of anticoagulants; Z93.0 Tracheostomy status; Z79.899 Other long term (current) drug therapy; Z79.82 Long term (current) use of aspirin; Z82.49 Family history of ischemic heart disease and other diseases of the circulatory system; Z21 Asymptomatic human immunodeficiency virus [HIV] infection status
CPT/HCPCS: 36415; 71045; 71250; 80048; 80053; 81001; 82140; 82962; 83880; 84132; 84145; 84484; 85025; 87040; 93005; G0378; J1815; J1956; J7040; U0003